=== PATIENT | female | born 1980 | race Caucasian/White ===

== ENCOUNTER 2020-03-30 20:07 | Emergency (ER) | payer BC ==
[~2020-03-30] VITALS: Ht 152.4 cm; Wt 72.6 kg
[2020-03-30] MEDS ORDERED: XANAX 0.5 MG0.5 MG PO (20:25)
[2020-03-30 20:52] LABS: ABSOLUTE EOSINOPHILS 0.1 thou/uL (0.0-0.7); ABSOLUTE LYMPHOCYTES 3.3 thou/uL (0.8-5.3); ABSOLUTE NEUTROPHILS 5.5 thou/uL (1.6-8.1); BASOPHILS 0.1 %; EOSINOPHILS 0.7 %; HEMATOCRIT 42.1 % (37.0-47.0); HEMOGLOBIN 14.6 gm/dL (12.0-15.0); LYMPHOCYTES 33.1 %; MCH 30.2 pg (26.0-34.0); MCHC 34.6 g/dL (28.0-37.0); MCV 87.3 fL (80.0-100.0); MONOCYTES 9.9 %; MPV 9.4 fl. (7.2-11.1); NUCLEATED RBCS 0 /100WBC; PLATELET COUNT* 286 thou/uL (150-400); POLYS 56.2 %; RBC 4.82 mil/uL (4.20-5.00); RDW-CV 13.5 % (10.5-14.5); WBC 9.9 thou/uL (4.0-11.0)
[2020-03-30 21:02] LABS: POTASSIUM 3.5 mmol/L (3.5-5.1)
[2020-03-30 21:06] LABS: ALBUMIN 3.9 g/dL (3.4-5.0); TOTAL BILIRUBIN 0.5 mg/dL (<0.1-1.0); TOTAL PROTEIN 7.2 g/dL (6.4-8.2)
[2020-03-30 21:30] LABS: URINE BILIRUBIN NEGATIVE (Negative); URINE BLOOD NEGATIVE (Negative); URINE CLARITY CLEAR; URINE COLOR YELLOW; URINE GLUCOSE-RANDOM NEGATIVE (Negative); URINE KETONES NEGATIVE (Negative); URINE LEUKOCYTES-REFLEX NEGATIVE (Negative); URINE NITRITE-REFLEX NEGATIVE (Negative); URINE PROTEIN TRACE (Negative); URINE UROBILINOGEN 0.2 E.U./dl (0.2-1.0)
[2020-03-30 21:39] LABS: AMP/METHAMP Negative (Negative); BARBITURATES Negative (Negative); BENZODIAZEPINES POSITIVE (Negative); COCAINE Negative (Negative); METHADONE Negative (Negative); OPIATES Negative (Negative); PCP Negative (Negative); THC Negative (Negative)
[2020-03-31] MEDS ORDERED: XANAX 0.5 MG0.5 M1 PO (00:43)
[2020-03-31 00:47] VITALS: BP 134/77
--- NOTE | 2020-03-31 13:38 | EKG ---
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1980 Requested By: Venita Rico Order Number: [id number] Ramiro MD: Khurram Springer Measurements Intervals [place] Rate: 108 P: 268 AR: 102 QRS: -23 QRSD: 94 T: 22 QT: 339 QTc: 455 Interpretive Statements Ectopic atrial tachycardia, unifocal Borderline left axis deviation No previous ECG available for comparison Electronically Signed On 03-31-2020 13:37:53 CDT by Khurram Springer [email or web address] <ELECTRONICALLY SIGNED> By: Khurram Springer MD, [facility] 03/31/20 1337 22 22 Khurram Springer MD, [facility] /EPI
[2020-04-01] MEDS ORDERED: LEXAPRO 10 MG T10 M2 (23:40)
[2020-04-01] MEDS ORDERED: BUSPIRONE HCL10 MG (23:40)
== END 2020-03-31 00:49 | disposition home or self-care (01) ==
LOC: M.ERS 20:07
PROVIDERS: Personal Emergency Response Attendant
DX: F41.9 Anxiety disorder, unspecified (principal); K59.00 Constipation, unspecified

== ENCOUNTER 2020-04-01 23:32 | Emergency (ER) | payer BC ==
[~2020-04-01] VITALS: Ht 152.4 cm; Wt 72.6 kg
[~2020-04-01 23:32] MED LIST: XANAX 0.5 MG0.5 M1 PO; XANAX 0.5 MG0.5 MG PO
[2020-04-01] MEDS ORDERED: BUSPIRONE HCL10 MG (23:40)
[2020-04-01] MEDS ORDERED: LEXAPRO 10 MG T10 M2 (23:40)
[2020-04-02 00:41] LABS: ABSOLUTE BASOPHILS 0.1 thou/uL (0.0-0.2); ABSOLUTE EOSINOPHILS 0.1 thou/uL (0.0-0.7); ABSOLUTE LYMPHOCYTES 2.5 thou/uL (0.8-5.3); ABSOLUTE MONOCYTES 1.1 thou/uL (0.0-1.2); ABSOLUTE NEUTROPHILS 7.2 thou/uL (1.6-8.1); BASOPHILS 0.6 %; EOSINOPHILS 1.3 %; HEMATOCRIT 41.1 % (37.0-47.0); HEMOGLOBIN 14.5 gm/dL (12.0-15.0); MCH 30.6 pg (26.0-34.0); MCHC 35.3 g/dL (28.0-37.0); MCV 86.9 fL (80.0-100.0); MONOCYTES 9.7 %; MPV 9.8 fl. (7.2-11.1); NUCLEATED RBCS 0 /100WBC; PLATELET COUNT* 263 thou/uL (150-400); POLYS 65.4 %; RBC 4.73 mil/uL (4.20-5.00); RDW-CV 13.5 % (10.5-14.5)
[2020-04-02 00:53] LABS: CALCIUM 8.8 mg/dL (8.5-10.1); CREATININE 0.9 mg/dL (0.6-1.3); POTASSIUM 3.4 mmol/L (3.5-5.1)
[2020-04-02 01:05] LABS: TOTAL BILIRUBIN 0.5 mg/dL (<0.1-1.0); TOTAL PROTEIN 7.1 g/dL (6.4-8.2)
[2020-04-02 02:00] VITALS: BP 133/70
--- NOTE | 2020-04-03 15:35 | EKG ---
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1980 Requested By: Venita Rico Order Number: [id number] MD: Sergey Delgado Measurements Intervals [place] Rate: 91 P: 263 IN: 94 QRS: -17 QRSD: 97 T: 8 QT: 362 QTc: 446 Interpretive Statements Ectopic atrial rhythm Short IN interval Borderline left axis deviation RSR' in V1 or V2, probably normal variant Borderline T abnormalities, anterior leads Compared to ECG 03/30/2020 20:23:13 Ectopic atrial rhythm persists RSR' in V1 or V2 now present T-wave abnormality now present Electronically Signed On 04-03-2020 15:34:54 CDT by Sergey Delgado [email or web address] <ELECTRONICALLY SIGNED> By: Sergey Delgado MD, [facility] 04/03/20 1534 [id number] [id number] Sergey Delgado MD, [facility] /EPI
== END 2020-04-02 02:00 | disposition home or self-care (01) ==
LOC: M.ERS 23:32
PROVIDERS: Personal Emergency Response Attendant
DX: F41.9 Anxiety disorder, unspecified (principal); Z98.51 Tubal ligation status

== ENCOUNTER 2020-05-17 20:44 | Emergency (ER) | payer OTHER ==
[~2020-05-17] VITALS: Ht 154.9 cm; Wt 71.2 kg
[~2020-05-17 20:44] MED LIST changes: +BUSPIRONE HCL10 MG; +LEXAPRO 10 MG T10 M2
[2020-05-17] MEDS ORDERED: HYDROXYZINE HCL25 M2 PO (20:55)
[2020-05-17 21:31] LABS: ABSOLUTE BASOPHILS 0.1 thou/uL (0.0-0.2); ABSOLUTE EOSINOPHILS 0.1 thou/uL (0.0-0.7); ABSOLUTE LYMPHOCYTES 2.4 thou/uL (0.8-5.3); ABSOLUTE MONOCYTES 0.9 thou/uL (0.0-1.2); ABSOLUTE NEUTROPHILS 5.9 thou/uL (1.6-8.1); BASOPHILS 0.9 %; EOSINOPHILS 1.4 %; HEMATOCRIT 40.3 % (37.0-47.0); MCH 30.3 pg (26.0-34.0); MCHC 34.8 g/dL (28.0-37.0); MCV 87.2 fL (80.0-100.0); MPV 9.4 fl. (7.2-11.1); NUCLEATED RBCS 0 /100WBC; PLATELET COUNT* 290 thou/uL (150-400); POLYS 62.7 %; RBC 4.62 mil/uL (4.20-5.00); RDW-CV 13.2 % (10.5-14.5); WBC 9.4 thou/uL (4.0-11.0)
[2020-05-17 21:44] LABS: CALCIUM 8.2 mg/dL (8.5-10.1); POTASSIUM 3.2 mmol/L (3.5-5.1)
[2020-05-17 21:55] LABS: ALBUMIN 3.8 g/dL (3.4-5.0); TOTAL BILIRUBIN 0.4 mg/dL (<0.1-1.0); TOTAL PROTEIN 6.8 g/dL (6.4-8.2)
[2020-05-17] MEDS ORDERED: ATIVAN0.5 M1 PO (22:06)
[2020-05-17] MEDS ORDERED: PHENERGAN 25 MG25 M1 PO (22:06)
[2020-05-17 22:32] VITALS: BP 106/64
--- NOTE | 2020-05-18 08:48 | EKG ---
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: : 1980 Requested By: Nora Mcfarland Order Number: [id number] MD: Constantino Purdy Measurements Intervals [place] Rate: 103 P: 54 NE: 154 QRS: -24 QRSD: 94 T: 34 QT: 360 QTc: 471 Interpretive Statements Sinus tachycardia Possible left atrial enlargement Borderline left axis deviation Low voltage, precordial leads Abnormal R-wave progression, late transition Borderline T abnormalities, anterior leads Compared to ECG 04/01/2020 23:47:02 Low QRS voltage now present Ectopic atrial rhythm no longer present Short NE interval no longer present T-wave abnormality still present Electronically Signed On 05-18-2020 8:48:32 CDT by Constantino Purdy [email or web address] <ELECTRONICALLY SIGNED> By: Constantino Purdy MD, [facility] 05/18/20847 56 56 Constantino Purdy MD, [facility] /EPI
== END 2020-05-17 22:34 | disposition home or self-care (01) ==
LOC: M.ERS 20:44
PROVIDERS: Nurse Practitioner Family
DX: F41.9 Anxiety disorder, unspecified (principal); Z20.828 Contact with and (suspected) exposure to other viral communicable diseases; Z87.891 Personal history of nicotine dependence; Z98.51 Tubal ligation status

== ENCOUNTER 2020-05-22 20:23 | Emergency (ER) | payer OTHER ==
[~2020-05-22] VITALS: Ht 154.9 cm; Wt 69.0 kg
[~2020-05-22 20:23] MED LIST changes: +ATIVAN0.5 M1 PO; +HYDROXYZINE HCL25 M2 PO; +PHENERGAN 25 MG25 M1 PO
[2020-05-22] MEDS ORDERED: LEXAPRO 10 MG T10 M2 PO (20:35)
[2020-05-22 21:06] LABS: URINE BILIRUBIN NEGATIVE (Negative); URINE BLOOD NEGATIVE (Negative); URINE CLARITY CLEAR; URINE COLOR YELLOW; URINE GLUCOSE-RANDOM NEGATIVE (Negative); URINE KETONES NEGATIVE (Negative); URINE LEUKOCYTES-REFLEX NEGATIVE (Negative); URINE NITRITE-REFLEX NEGATIVE (Negative); URINE PROTEIN NEGATIVE (Negative); URINE SPECIFIC GRAVITY 1.025 (1.005-1.030)
[2020-05-22 21:33] LABS: ABSOLUTE BASOPHILS 0.1 thou/uL (0.0-0.2); ABSOLUTE EOSINOPHILS 0.1 thou/uL (0.0-0.7); ABSOLUTE LYMPHOCYTES 3.1 thou/uL (0.8-5.3); ABSOLUTE MONOCYTES 0.8 thou/uL (0.0-1.2); BASOPHILS 0.9 %; EOSINOPHILS 1.3 %; HEMATOCRIT 39.2 % (37.0-47.0); HEMOGLOBIN 13.6 gm/dL (12.0-15.0); LYMPHOCYTES 30.5 %; MCH 30.5 pg (26.0-34.0); MCHC 34.7 g/dL (28.0-37.0); MCV 87.8 fL (80.0-100.0); MPV 9.8 fl. (7.2-11.1); NUCLEATED RBCS 0 /100WBC; PLATELET COUNT* 259 thou/uL (150-400); POLYS 59.3 %; RBC 4.47 mil/uL (4.20-5.00); RDW-CV 13.5 % (10.5-14.5); WBC 10.1 thou/uL (4.0-11.0)
[2020-05-22 21:45] LABS: CALCIUM 8.1 mg/dL (8.5-10.1); CREATININE 0.9 mg/dL (0.6-1.3); POTASSIUM 3.6 mmol/L (3.5-5.1)
[2020-05-22 21:50] LABS: ALBUMIN 3.7 g/dL (3.4-5.0); TOTAL BILIRUBIN 0.5 mg/dL (<0.1-1.0); TOTAL PROTEIN 6.5 g/dL (6.4-8.2)
[2020-05-22] MEDS ORDERED: ZOFRAN ODT4 MG PO (22:13)
[2020-05-22 22:28] VITALS: BP 112/68
== END 2020-05-22 22:30 | disposition home or self-care (01) ==
LOC: M.ERS 20:23
PROVIDERS: Emergency Medicine
DX: F41.9 Anxiety disorder, unspecified (principal); R42 Dizziness and giddiness; Z20.828 Contact with and (suspected) exposure to other viral communicable diseases; Z98.51 Tubal ligation status; Z87.891 Personal history of nicotine dependence

== ENCOUNTER → 2020-07-17 | Outpatient (CLI) | payer OTHER ==
[~2020-07-17] MED LIST changes: +LEXAPRO 10 MG T10 M2 PO; +ZOFRAN ODT4 MG PO
--- NOTE | 2020-07-17 16:37 | 2DMMODE ---
[place] [address] 2 D/M-MODE ECHOCARDIOGRAM Name: BROCK URIARTE Room: [facility]#: [id number] Admission: 07/17/20 Attend Phys: Lalitha Duarte RN Discharge: Date of : 84 Date of Service: 07/17/20 1637 Report #: [id number] THIS REPORT FOR: cc: Dagoberto Muro,Dagoberto Herrera,Khurram Pathak MD [facility] ~ APPROVED REPORT Study performed: 07/17/2020 14:20:11 EXAM: Comprehensive 2D, Doppler, and color-flow Echocardiogram Patient Location: Out-Patient BSA: 1.68 HR: 82 bpm Other Information Study Quality: Excellent Indications Palpitations Chest Pain 2D Dimensions IVSd: 9.59 (7-11mm) LVOT Diam: 20.31 (18-24mm) LVDd: 38.74 mm PWd: 7.54 (7-11mm) Ascending Ao: 21.41 (22-36mm) LVDs: 21.74 (25-40mm) Aortic Root: 25.87 mm Volumes Left Atrial Volume (Systole) LA ESV Index: 11.60 mL/m2 Aortic Valve AoV Peak Rajinder.: 1.16 m/s AO Peak Gr.: 5.39 mmHg LVOT Max P.69 mmHg AO Mean Gr.: 3.08 mmHg LVOT Mean P.75 mmHg LVOT Max V: 0.96 m/s AO V2 VTI: 21.01 cm LVOT Mean V: 0.61 m/s SHARAN (VTI): 2.53 cm2 LVOT V1 VTI: 16.[place] [address] 2 D/M-MODE ECHOCARDIOGRAM Name: BROCK URIARTE Room: [facility]#: [id number] Admission: 07/17/20 Attend Phys: Lalitha Duarte RN Discharge: Date of : 84 Date of Service: 07/17/20 1637 Report #: [id number] E/A Ratio: 1.00 MV Decel. Time: 234.13 ms MV E Max Rajinder.: 0.52 m/s MV PHT: 67.90 ms MVA (PHT): 3.24 cm2 TDI E/Lateral E': 3.71 E/Medial E': 4.00 Medial E' Rajinder.: 0.13 m/s Lateral E' Rajinder.: 0.14 m/s Pulmonary Valve PV Peak Rajinder.: 0.96 m/s PV Peak Gr.: 3.71 mmHg Left Ventricle The left ventricle is normal size. There is normal LV segmental wall motion. There is normal left ventricular wall thickness. Left ventricular systolic function is normal. The left ventricular ejection fraction is within the normal range. LVEF is 55-60%. The left ventricular diastolic function is normal. Right Ventricle The right ventricle is normal size. The right ventricular systolic function is normal. Atria The left atrium size is normal. The right atrium size is normal. Aortic Valve The aortic valve is normal in structure. No aortic regurgitation is present. There is no aortic valvular stenosis. Mitral Valve The mitral valve is normal in structure. There is no mitral valve regurgitation noted. No evidence of mitral valve stenosis. Tricuspid Valve The tricuspid valve is normal in structure. There is no tricuspid valve regurgitation noted. Pulmonic Valve The pulmonary valve is normal in structure. There is no pulmonic valvular regurgitation[place] [address] 2 D/M-MODE ECHOCARDIOGRAM Name: BROCK URIARTE TIMOTHY Room: [facility]#: [id number] Admission: 07/17/20 Attend Phys: Lalitha Duarte RN Discharge: Date of : 84 Date of Service: 07/17/20 1637 Report #: [id number] The aortic root is normal in size. IVC is normal in size and collapses >50% with inspiration. Pericardium There is no pericardial effusion. <Conclusion> Left ventricular systolic function is normal. The left ventricular ejection fraction is within the normal range. <ELECTRONICALLY SIGNED> By: Khurram Springer MD, FACC 07/17/201636 36 36 Khurram Springer MD, FACC /INF
--- NOTE | 2020-07-18 10:20 | TST ---
[place] [address] TREADMILL STRESS TEST Name: BROCK URIARTE Room: [facility]#: [id number] Admission: 07/17/20 Attend Phys: Lalitha Duarte RN Discharge: Date of : 84 Date of Service: 07/17/20 1643 Report #: [id number] THIS REPORT FOR: cc: Dagoberto Muro Vincent R. DO Blick, David R. MD [facility] ~ CC: Lalitha Muro DO DATE OF SERVICE: 07/17/2020 CARDIOLOGY EXERCISE STRESS TEST INDICATIONS: Exercise stress test was requested for this patient with a history of chest pain. PROCEDURE: The patient was exercised on a Jonathan protocol stress test. RESULTS: The patient had a pretest heart rate of 90, blood pressure 103/82. The patient was able to exercise for 9 minutes and 29 seconds, achieved a peak heart rate of 176, which is greater than 90% of maximum predicted heart rate for the patient's age. Peak blood pressure is 145/66. In recovery, the patient had a heart rate of 100, blood pressure 109/73. The patient denied chest pains. Exercise was terminated secondary to achieving target heart rate. The patient's resting ECG showed a normal sinus rhythm with nonspecific ST-segment changes. With exercise, there were no arrhythmias noted. The patient did develop upsloping ST segment depression with exercise and at peak exercise, there appeared to be no significant ST-segment depression at 80 milliseconds after the J-point. During recovery, there were no additional ST-segment changes noted. There was a rare PVC noted during recovery. IMPRESSION: 1. Clinical response, nonischemic. 2. ECG response, nonischemic, although the patient had an abnormal resting ECG. 3. Exercise capacity normal. This exercise stress test was felt to be indeterminate risk for predicting future cardiac events due to resting ECG abnormalities. If clinically indicated, I would consider [place] [address] TREADMILL STRESS TEST Name: BROCK URIARTE Room: [facility]#: [id number] Admission: 07/17/20 Attend Phys: Lalitha Duarte RN Discharge: Date of : 84 Date of Service: 07/17/201642 Report #: [id number] perfusion imaging to improve the specificity of exercise stress test of diagnosing myocardial ischemia. <ELECTRONICALLY SIGNED> By: Khurram Springer MD, FACC 07/18/20 1020 42 2127 Khurram Springer MD, FACC /nt
== END ==
LOC: M.CRD 06-29 08:59
PROVIDERS: ATTEND Registered Nurse
DX: R00.2 Palpitations (principal); R07.9 Chest pain, unspecified

== ENCOUNTER → 2020-10-25 | Outpatient (CLI) | payer OTHER ==
[2020-10-25 09:25] LABS: ABSOLUTE BASOPHILS 0.1 thou/uL (0.0-0.2); ABSOLUTE EOSINOPHILS 0.1 thou/uL (0.0-0.7); ABSOLUTE LYMPHOCYTES 2.5 thou/uL (0.8-5.3); ABSOLUTE MONOCYTES 0.8 thou/uL (0.0-1.2); ABSOLUTE NEUTROPHILS 4.3 thou/uL (1.6-8.1); BASOPHILS 0.9 %; EOSINOPHILS 1.9 %; HEMATOCRIT 41.7 % (37.0-47.0); HEMOGLOBIN 14.2 gm/dL (12.0-15.0); LYMPHOCYTES 31.5 %; MCH 29.5 pg (26.0-34.0); MCV 86.8 fL (80.0-100.0); MONOCYTES 10.4 %; MPV 9.2 fl. (7.2-11.1); NUCLEATED RBCS 0 /100WBC; PLATELET COUNT* 276 thou/uL (150-400); POLYS 55.3 %; RBC 4.81 mil/uL (4.20-5.00); RDW-CV 13.6 % (10.5-14.5); WBC 7.8 thou/uL (4.0-11.0)
[2020-10-25 09:36] LABS: ALKALINE PHOSPHATASE 64 U/L (46-116); ANION GAP 9 mmol/L (7-16); BUN 18 mg/dL (7-18); CALCIUM 8.7 mg/dL (8.5-10.1); CHLORIDE 104 mmol/L (98-107); CHOLESTEROL 148 mg/dL (<200); CO2 25 mmol/L (21-32); GLUCOSE 113 mg/dL (70-99); HDL CHOLESTEROL 57 mg/dL (>40); LDL CHOLESTEROL 80 mg/dL (<100); POTASSIUM 4.7 mmol/L (3.5-5.1); SGOT 19 U/L (15-37); SGPT 27 U/L (30-65); SODIUM 138 mmol/L (136-145); TC:HDL 2.6 Ratio (Not establshd); TOTAL BILIRUBIN 0.3 mg/dL (<0.1-1.0); TOTAL PROTEIN 7.1 g/dL (6.4-8.2); TRIGLYCERIDE 55 mg/dL (<150); VLDL 11 mg/dL (<40)
[2020-10-25 09:43] LABS: SERUM ASSESSMENT Clear
== END ==
LOC: M.LAB 09:11
PROVIDERS: ATTEND Specialist
DX: F41.9 Anxiety disorder, unspecified (principal); Z82.49 Family history of ischemic heart disease and other diseases of the circulatory system

== ENCOUNTER → 2021-07-05 | Outpatient (CLI) | payer OTHER, MEDICAID | LOC: M.RAD 09:36 | PROVIDERS: ATTEND Family Medicine | DX: R92.2 Inconclusive mammogram (principal) ==